=== PATIENT | female | born 1960 | race Caucasian/White ===

== ENCOUNTER 2021-06-16 19:40 | Inpatient (IN) | payer BC, OTHER ==
[~2021-06-16] VITALS: Ht 167.6 cm; Wt 78.9 kg
[2021-06-16 19:43] VITALS: BP 133/63
[2021-06-16 22:23] LABS: ABSOLUTE NEUTROPHILS 11.2 thou/uL (1.4-8.2); BASOPHILS 0.4 % (0.0-2.0); EOSINOPHILS 0.6 % (0.0-3.0); HEMATOCRIT 36.4 % (37.0-47.0); HEMOGLOBIN 12.1 gm/dL (12.0-15.0); LYMPHOCYTES 6.5 % (24.0-44.0); MCH 31.3 pg (26.0-34.0); MCHC 33.3 g/dL (28.0-37.0); MONOCYTES 6.5 % (1.0-8.0); PLATELET COUNT 201 thou/uL (150-400); RBC 3.87 mil/uL (4.20-5.00); RDW 12.9 % (10.5-14.5); WBC 13.1 thou/uL (4.0-11.0)
[2021-06-16 22:28] LABS: CREATININE 0.6 mg/dL (0.6-1.0); POTASSIUM 3.4 mmol/L (3.5-5.1)
[2021-06-16 22:34] LABS: ALBUMIN 2.7 g/dL (3.4-5.0); TOTAL BILIRUBIN 1.1 mg/dL (0.2-1.0); TOTAL PROTEIN 6.9 g/dL (6.4-8.2)
[2021-06-16 23:08] LABS: URINE BILIRUBIN NEGATIVE (Negative); URINE BLOOD TRACE (Negative); URINE CLARITY CLEAR; URINE COLOR YELLOW; URINE GLUCOSE-RANDOM* 3+ (Negative); URINE KETONES 3+ (Negative); URINE LEUKOCYTES-REFLEX NEGATIVE (Negative); URINE NITRITE-REFLEX NEGATIVE (Negative); URINE PROTEIN (DIPSTICK) NEGATIVE (Negative); URINE UROBILINOGEN 0.2 E.U./dl (0.2-1.0)
[2021-06-17] MEDS ORDERED: METFORMIN HCL500 M1 PO (01:20)
[2021-06-17] MEDS ORDERED: LIPITOR 20 MG T20 M1 PO (01:20)
[2021-06-17] MEDS ORDERED: LISINOPRIL5 MG PO (01:20)
[2021-06-17 01:59] VITALS: BP 119/50
[2021-06-17 03:07] VITALS: BP 132/68
--- NOTE | 2021-06-17 03:58 | NUR ---
PT ARRIVED FROM ER AT 0300 A&OX4 ADMISSION DONE AND PT ORIENTED TO THE UNIT. NPO FOR POSSIBLE SX IN THE AM. PT UP AD MASHA. CALL LIGHT AT REACH. DENIES PAIN, N/V ON ASSESSMENT WILL CONT TO MONITOR TILL EOS. SKIN INTACT AND FURTHER SIGNS OF DISCOMFORT.
[2021-06-17 07:43] VITALS: BP 103/61
--- NOTE | 2021-06-17 12:02 | NUR ---
ASSUMED PT CARE THIS AM. PT IS ALERT & ORIENTED X4. PT HAS IV SITE ON RAC 20 GAUGE RUNNING LR. PT IS ON TELE MONITOR. PT IS UP AD MASHA. PT HAS BEEN NPO SINCE MIDNIGHT. PT IS ACCUCHECK DELIA. PT IS ON ROOM AIR. PT RATED PAIN 1/10 ON ABDOMEN. INFORMED PT THAT SHE WILL HAVE SURGERY THIS AFTERNOON. PT ON THE BED, BED ON THE LOWEST POSITION, SIDE RAILS UP, CALL LIGHT WITHIN REACH.
[2021-06-17 12:04] VITALS: BP 112/65
--- NOTE | 2021-06-17 15:50 | NUR ---
Chart reviewed and case discussed with the care team. Pt is having surgery for appendicitis this afternoon. She was indep prior to admission and lives with her spouse. She has health insurance in place for f/u care and her pcp is Dr. Jj Anthony. No cm interventions indicated at this time. Will follow along should dc needs arise.
[2021-06-17 18:38] VITALS: BP 124/63
[2021-06-17 19:30] VITALS: BP 121/70
--- NOTE | 2021-06-18 02:31 | NUR ---
PT IS A/O X4 AND IS UP SBA TO THE BR. ROOM AIR. VSS. SR ON THE MONITOR. CLEAR LIQ DIET. REQUESTED HALF DOSE OF INSULIN FOR HS. BS WAS 165. VOIDS PER TOILET. NO BM THIS SHIFT. LAP SITES C/D/I. RIGHT FELIPE DRAIN DRAINING RED DRAINAGE. ICE PACK IN PLACE TO ABDOMEN. PT C/O PAIN. PRN PAIN MEDICATION GIVEN DIRECTED. PARTIAL RELIEF NOTED. FALL PRECAUTIONS, AND SCD'S IN PLACE. PT IS PROGRESSING TOWARDS PLAN OF CARE DC GOALS. CALL LIGHT IS WITHIN REACH. PT CALLS APPROPRIATELY FOR ASSISTANCE.
[2021-06-18 05:00] VITALS: BP 96/48
[2021-06-18 06:14] LABS: HEMATOCRIT 34.5 % (37.0-47.0); HEMOGLOBIN 11.7 gm/dL (12.0-15.0); MCH 32.1 pg (26.0-34.0); MCHC 33.9 g/dL (28.0-37.0); MCV 94.8 fL (80.0-100.0); RBC 3.64 mil/uL (4.20-5.00); RDW 13.4 % (10.5-14.5)
[2021-06-18 06:37] LABS: ALBUMIN 2.1 g/dL (3.4-5.0); CALCIUM 8.4 mg/dL (8.5-10.1); CREATININE 0.7 mg/dL (0.6-1.0); MAGNESIUM 1.8 mg/dL (1.8-2.4); PHOSPHORUS 3.4 mg/dL (2.5-4.9); POTASSIUM 4.1 mmol/L (3.5-5.1)
[2021-06-18 08:16] VITALS: BP 93/52
--- NOTE | 2021-06-18 10:06 | NUR ---
ASSUMED PT CARE THIS AM. PT IS ALERT & ORIENTED X4. PT HAS IV SITE ON RAC 20 GAUGE RUNNING LR @100ML/HR. PT IS UP AD MASHA. PT IS ON TELE MONITOR ON. PT IS ACCUCHECK ACHS. PT HAS 2 LAP SITES C/D/I. PT IS ON ROOM AIR. PT TOLERATED CLEAR LIQUID DIET. PT HAS FELIPE DRAIN AND HAS BEEN PASSING GAS. PT RATED PAIN 3/10 ON ABDOMEN THIS AM. PT ON THE BED WATCHING TV, BED ON THE LOWEST POSITION, SIDE RAILS UP, CALL LIGHT WITHIN REACH. FOLLOW POC.
[2021-06-18 12:12] VITALS: BP 121/75
[2021-06-18 15:54] VITALS: BP 110/57
[2021-06-18 20:20] VITALS: BP 125/80
--- NOTE | 2021-06-19 03:08 | NUR ---
PT IS A/O X4 AND IS UP AD MASHA. ROOM AIR. VSS. AFEBRILE. MEDICATIONS GIVEN PER NOV. C/O PAIN TO ABDOMEN. PRN PAIN MEDICATION GIVEN PER NOV. LAP SITES C/D/I. FELIPE DRAIN IN PLACE DRAINING RED DRAINAGE. PT VOIDS PER TOILET INDEPENDENTLY. PT HAD BM THIS SHIFT. PLEASANT AND COOPERATIVE. CALLS OUT FOR ASSISTANCE APPROPRIATELY. CALL LIGHT IS WITHIN REACH. PT IS PROGRESSING TOWARDS PLAN OF CARE DC GOALS. NO C/O NAUSEA THIS SHIFT.
[2021-06-19 05:21] LABS: HEMATOCRIT 35.4 % (37.0-47.0); MCH 32.1 pg (26.0-34.0); MCHC 33.8 g/dL (28.0-37.0); MCV 94.8 fL (80.0-100.0); RBC 3.74 mil/uL (4.20-5.00); RDW 13.4 % (10.5-14.5); WBC 11.2 thou/uL (4.0-11.0)
[2021-06-19 05:37] LABS: ALBUMIN 2.3 g/dL (3.4-5.0); CALCIUM 8.5 mg/dL (8.5-10.1); CREATININE 0.5 mg/dL (0.6-1.0); POTASSIUM 3.4 mmol/L (3.5-5.1)
[2021-06-19 07:27] VITALS: BP 106/56
--- NOTE | 2021-06-19 13:07 | NUR ---
SW reviewed chart and spoke with nursing. Pt is s/p lap appendectomy. Pt is on IV abx. Diet is being advanced. Pt may be ready for discharge over the weekend. No discharge needs identified at this time. SW is available to assist should needs arise.
[2021-06-19] MEDS ORDERED: MIRALAX17 GM PO (14:37)
[2021-06-19] MEDS ORDERED: HYDROCODON-ACE1 EAC7 PO (14:37)
[2021-06-19 17:11] VITALS: BP 106/56
--- NOTE | 2021-06-19 17:19 | NUR ---
ASSUMED PT CARE AROUN 0710. PT A X O 4, ON RA , UP AD L;IB. IV LF AC/LR/100MLS/HR. 2 LAP SITES AT THE ABDOMEN, RT FELIPE DRAIN TOWARDS MIDLINE. PAIN PARTIALLY CONTROLLED BY PAIN MEDS. PT AMBULATED ON THE HALLWAY. ON TELE RUNNING SINUS RYTHM. DISCHARGE ORDERS IN. WAITING FOR FAMILY. WILL CONT TO MONITOR.
--- NOTE | 2021-06-22 19:06 | PATH ---
[facility] [address] [place] [address] PATHOLOGY RPT PROCEDURE Name: FRED GOLDBERG Room #: 437-P [facility] IN M.R.#: [id number] Admission: 06/17/21 Date of : 56 Discharge: 06/19/21 Report #: [id number] Path Case #: [id number] [facility] Accession Number: [id number] . 01 Material submitted: . appendix - APPENDIX . 01 Clinical history: . SJ LAPAROSCOPIC APPENDECTOMY PERFORATED APPENDICITIS . 02 Diagnosis: Appendix, appendectomy: - Marked acute appendicitis along with marked acute serositis. - Fibrous obliteration of the tip. (IUV:automotive service assistant; 06/22/2021) QTP 06/22/2021 1255 Local . 02 Electronically signed: . Carla Suggs MD, Pathologist NPI- [id number] . 01 Gross description: . The specimen is received in formalin, labeled "Fred Goldberg, appendix". Received are two segments of yellow-blankenship tissue, both of which have a staple line identified, measuring 2.0 x 1.0 x 0.6 and 2.5 x 1.7 x 1.0 cm in greatest dimensions. Sectioning through the smaller segment reveals bright yellow, lobulated cut surfaces. The hansa are removed from the larger segment and the cut surface displays a segment of appendix measuring 0.6 cm in diameter. The specimen is inked black. Sectioning reveals the appendix to measure 0.7 cm in length and displays a patent lumen. No distinct nodules, lesions, or perforations are identified. The larger segment is bisected and entirely submitted in cassette A1. The smaller segment is serially sectioned and entirely submitted in cassette A2. Gross photographs are taken. (CAA; 06/19/2021) QAC/QA 06/22/2021 1256 Local . 02 Pathologist provided ICD-10: K35.80, K65.8 . 02 CPT . 428685 Specimen Comment: Report sent to / DR JAIME Performed at: 01 [facility] [address], [place] [id number] [place] [address] PATHOLOGY RPT PROCEDURE Name: TINYFRED Room #: 437-P DIS IN M.R.#: [id number] Admission: 06/17/21 Date of : 56 Discharge: 06/19/21 Report #: [id number] Path Case #: [id number] MD Christian Mcfadden MD Phone: [phone] Performed at: [address] [id number] MD Carla Suggs MD Phone: [phone]
== END 2021-06-19 18:41 | disposition home or self-care (01) | DRG 340 ==
LOC: ER 19:40 → 4S 06-17 00:36 → EROBS 06-17 00:36 → 4S 06-17 02:55
PROVIDERS: Emergency Medicine; ADMIT Surgery; ATTEND Surgery
PROC: 0DTJ4ZZ Resection of Appendix, Percutaneous Endoscopic Approach (ICD-10-PCS; principal; 2021-06-17)
DX: K35.33 Acute appendicitis with perforation, localized peritonitis, and gangrene, with abscess (principal); E11.9 Type 2 diabetes mellitus without complications; I25.10 Atherosclerotic heart disease of native coronary artery without angina pectoris; Z20.822 Contact with and (suspected) exposure to COVID-19; Z91.040 Latex allergy status; Z90.710 Acquired absence of both cervix and uterus; Z90.49 Acquired absence of other specified parts of digestive tract
CPT/HCPCS: 10100; 50010; 50101; 50411; 50555; 50739; 51489; 52265; 53307; 53310; 53312; 54022; 54118; 56462; 56525; 56526; 58574; 58867; 58868; 58911; 62110; 62900; 70005

== ENCOUNTER → 2021-08-17 | Outpatient (CLI) | payer BC, OTHER ==
[~2021-08-17] MED LIST: HYDROCODON-ACE1 EAC7 PO; LIPITOR 20 MG T20 M1 PO; LISINOPRIL5 MG PO; METFORMIN HCL500 M1 PO; MIRALAX17 GM PO
== END ==
LOC: LAB 10:05
PROVIDERS: ATTEND Student in an Organized Health Care Education/Training Program
DX: Z01.812 Encounter for preprocedural laboratory examination (principal); Z20.822 Contact with and (suspected) exposure to COVID-19

== ENCOUNTER → 2021-08-19 | Outpatient (CLI) | payer BC, OTHER ==
--- NOTE | 2021-08-25 12:06 | PATH ---
[facility] [place] [address] PATHOLOGY RPT PROCEDURE Name: FRED GOLDBERG Room #: REG JOE Guajardo.#: [id number] Admission: 08/19/21 Date of : 56 Discharge: Report #: [id number] Path Case #: [id number] [facility] Accession Number: [id number] . 01 Material submitted: . sigmoid colon - SIGMOID COLON BIOPSY . 01 Clinical history: . COLONOSCOPY SCREENING, HX OF PERFORATED APPENDIX DIVERTICULOSIS . 01 Diagnosis: Colonic mucosa "sigmoid colon biopsy": - Focal ulceration with acute inflammation and granulation tissue. - See comment. ([facility]:pit; 08/24/2021) [facility] 08/24/2021 1729 Local . 01 Comment: No obvious hyperplastic changes, adenomatous changes, high-grade dysplasia or malignancy. ([facility]:martha; 08/24/2021) . 01 Electronically signed: . Christian Mcfadden MD, Pathologist NPI- [id number] . 01 Gross description: . The specimen is received in formalin, labeled "Fred Goldberg, sigmoid colon biopsy". Received are two segments of pale blankenship tissue measuring 0.3 cm each in maximum dimensions. The specimen is submitted entirely in cassette A1. (CAA; 08/21/2021) QA/[facility] 08/21/2021 1304 Local . 01 Pathologist provided ICD-10: K63.3, K52.9 . 01 CPT . 114020 Specimen Comment: A courtesy copy of this report has been sent to [phone] Specimen Comment: [phone] Specimen Comment: Report sent to / DR JAIME Specimen Comment: A duplicate report has been generated due to demographic updates. [address] [address] PATHOLOGY RPT PROCEDURE Name: JOSELUIS GOLDBERGLINE Room #: REG JOE Kwong#: [id number] Admission: 08/19/21 Date of : 56 Discharge: Report #: [id number] Path Case #: [id number] Performed at: 01 [facility] [address] [place] [address] [address], [place], [place] [id number] MD Christian Mcfadden MD Phone: [phone]
== END | disposition home or self-care (01) ==
LOC: GI 14:15 → EDSTATUS 14:22 → GI 14:23
PROVIDERS: ATTEND Surgery
DX: K35.32 Acute appendicitis with perforation, localized peritonitis, and gangrene, without abscess (principal); K63.3 Ulcer of intestine; K52.9 Noninfective gastroenteritis and colitis, unspecified; K57.30 Diverticulosis of large intestine without perforation or abscess without bleeding; Z98.890 Other specified postprocedural states; Z79.899 Other long term (current) drug therapy; Z88.2 Allergy status to sulfonamides; Z91.040 Latex allergy status
CPT/HCPCS: 62110; 62900